=== PATIENT | female | born 1950 | race Caucasian/White ===

== ENCOUNTER → 2022-09-16 08:12 | Outpatient (CLI) | payer MEDICARE, OTHER, SELFPAY ==
--- NOTE | 2022-09-16 | DI.ECHO.S_ITS ---
[facility]---------+ [facility] +---------+ : : [address] : [address] [place] : : : : [id number] : : : : Phone: [phone]---------+ Echocardiogram Report + + :Name: SHELBY LEROY Study Date: 09/16/2022 Height: 69 in : :[facility] ReadingLocation: Weight: 161 lb : : Gender: Female BSA: 1.9 m2 : :: 1950 Age: 71 yrs BP: 138/77 mmHg: :Reason For Study: HYPERTENSION : :Ordering Physician: KARELY KRUGER : :E Performed By: Lluvia Hough : :Referring: KARELY KRUGER E : + + Interpretation Summary The ejection fraction is estimated to be 55-60%. There is borderline mitral valve prolapse. There is prolapse of the posterior mitral valve leaflet(s). There is mild mitral regurgitation. Procedure: A two-dimensional transthoracic echocardiogram with color flow and Doppler was performed. The study quality was technically adequate. There is no prior echocardiogram noted for this patient. The patient was in sinus bradycardia with heart rates between 45-56 bpm during the exam. Left Ventricle: The left ventricle is normal in size and wall thickness. The ejection fraction is estimated to be 55-60%. Left ventricular wall motion is normal. Right Ventricle: The right ventricle is normal in size and function. Atria: The left atrial size is normal. Right atrial size is normal. There is no Doppler evidence for an interatrial shunt. Mitral Valve: There is borderline mitral valve prolapse. There is prolapse of the posterior mitral valve leaflet(s). There are multiple regurgitant jets present. There is mild mitral regurgitation. Aortic Valve: The aortic valve is trileaflet. The aortic valve opens well. There is no aortic valve stenosis. No aortic regurgitation is present. Tricuspid Valve: The tricuspid valve is normal in structure and function. There is trace tricuspid regurgitation. Pulmonary artery pressures cannot be estimated because of the lack of a measurable TR jet velocity. Pulmonic Valve: The pulmonic valve is not well visualized. There is no pulmonic valvular regurgitation. Great Vessels: The aortic root is normal size. The dimensions of the ascending aorta are normal. The IVC is dilated (diameter is greater than 2.1 cm) yet it collapses greater than 50% with a sniff. This suggests a right atrial pressure of 8 mm Hg. Pericardium/ Pleura There is no pericardial effusion. There is no pleural effusion. MMode/2D Measurements & Calculations LVIDd: 5.0 cm LVOT diam: 2.1 cm LVIDs: 3.5 cm Ao root diam: 3.1 cm FS: 29.9 % asc Aorta Diam: 2.7 cm IVSd: 0.69 cm Ao Arch Diam (Prox Trans): 2.7 cm LVPWd: 0.68 cm LV garcia. diameter/BSA (cm/m^2): 2.6 LV sys. diameter/BSA (cm/m^2): 1.8 LA A2 area: 21.5 cm2 RA long axis: 4.7 cm LA A4 area: 17.0 cm2 RA area: 13.1 cm2 LA length (vol): 4.9 cm RA vol: 31.0 ml LA vol: 63.1 ml RA : 16.4 ml/m2 LA vol index: 33.5 ml/m2 IVC diam: 2.6 cm RVD1 (basal): 3.5 cm RVD2 (mid): 3.3 cm TAPSE: 1.9 cm Doppler Measurements & Calculations Ao V2 max: 133.3 cm/sec LVOT Max Trever: 137.0 cm/sec Ao V2 mean: 86.9 cm/sec LV V1 max P.5 mmHg Ao max P.1 mmHg LV V1 VTI: 31.1 cm Ao mean P.6 mmHg GALEN(I,D): 3.5 cm2 Ao V2 VTI: 30.4 cm GALEN(V,D): 3.5 cm2 sev ratio: 1.0 GALEN indexed to BSA (cm^2/m^2): 1.8 MV E max trever: 73.1 cm/sec PA V2 max: 82.1 cm/sec MV A max trever: 67.3 cm/sec PA V2 mean: 61.2 cm/sec MV E/A: 1.1 PA mean P.6 mmHg Med Peak E' Trever: 7.8 cm/sec PA pr(Accel): 12.2 mmHg E/E' med: 9.3 Lat Peak E' Trever: 6.6 cm/sec E/E' lat: 11.0 E/e' average: 10.2 MV dec time: 0.28 sec SV(LVOT): 105.4 ml Reading Physician:11:11 AM
== END ==
PROVIDERS: PCP Family Medicine; Referring Provider Family Medicine; Visit Provider Family Medicine
DX: I34.0 Nonrheumatic mitral (valve) insufficiency (principal); R00.2 Palpitations; R53.82 Chronic fatigue, unspecified; I10 Essential (primary) hypertension; Z82.49 Family history of ischemic heart disease and other diseases of the circulatory system
CPT/HCPCS: 93306